=== PATIENT | female | born 1960 | race Caucasian/White ===

== ENCOUNTER → 2018-02-10 | Outpatient (CLI) | payer BC, OTHER ==
[~2018-02-10] MED LIST: CARV12.577 PO; SUPPLEMENTS
--- NOTE | 2018-02-10 11:57 | RADIOLOGY IMAGING REPORT ---
[place] [facility] [place] NAME: Coleen Covarrubias : 1960 MR: [id number] V: [id number] EXAM DATE: ORDERING PHYSICIAN: [facility] TECHNOLOGIST: [place] [facility] [place]en Cov[place]ub[place] : 1960 Visit/Account:[id number] Date of Sevice: 02/10/2018 MRI left knee Indication: Left knee pain. History of meniscectomy. Comparison: MRI of the left knee from 06/16/2009. Technique: Multiplanar, multisequence MRI examination is performed of the left knee without contrast. Findings: Medial compartment: Postsurgical change from prior partial meniscectomy of the medial meniscus noted with markedly trunca donnie posterior horn and body. There is no discrete tear identified within the residual meniscal tissue on this exam. Significantly progressed worsened now full-thickness chondral loss of the mid weightbearing medial fe moral condyle and medial tibial plateau cartilage with a few foci of underlying mild subchondral samina a. Lateral compartment: No discrete tear of the lateral meniscus. The articular cartilage surfaces are unremarkable. Patellofemoral compartment: Interval development of a full-thickness chondral defect of the median ridge patella cartilage as wel l as full-thickness fissuring of the medial facet patella cartilage seen best on image 11 of the axia l series with minimal foci of underlying mild subchondral edema as well. There is also partial-thickn ess chondral loss inferior mid trochlear groove cartilage. Bones and marrow: No acute or aggressive osseous abnormality. Ligaments and tendons: ACL and PCL are intact. The extensor mechanism is intact. Minimal edema superficial and deep to the MCL consistent with mild sprain. The iliotibial band, biceps femoris tendon, and the fibular collateral ligament is intact The popliteus tendon is also intact. Soft tissues: Moderate to large sized suprapatellar joint effusion now seen. IMPRESSION: 1. Significantly worsened chondral loss medial compartment cartilage and patellofemoral compartment c artilage as above. 2. Moderate to large sized suprapatellar joint effusion. 3. Mild MCL sprain. Report Dictated By: Juan M Corrales MD at 02/10/2018 11:49 AM Report E-Signed By: Juan M Corrales MD at 02/10/2018 11:53 AM WSN:[id number]
== END ==
LOC: MRI 01:23
DX: M22.42 Chondromalacia patellae, left knee (principal); M25.462 Effusion, left knee; S83.502A Sprain of unspecified cruciate ligament of left knee, initial encounter